=== PATIENT | female | born 1945 | race Caucasian/White ===

== ENCOUNTER → 2017-05-23 | Outpatient (CLI) | payer OTHER ==
[~2017-05-23] MED LIST: ADVAIR 250/501 DISK PO; ALEVE220 M2 PO; ASPIRIN325 MG PO; ASPIRIN81 M2 PO; AZITHROMYCIN250 MG PO; BENICAR40 MG PO; BIOTIN1000 MICRO PO; BYSTOLIC5 MG PO; Bystolic PO; CEFPODOXIME PR200 MG PO; CEPHALEXIN500 MG; COMBIVENT RESPIMAT I PO; CYCLOBENZAPRINE10 MG PO; DAILY VALUE1 EACH PO; DOXAZOSIN MESYLA2 MG PO; FISH OIL 1,0001 EA10 PO; OXYCODONE HCL5 MG PO; PANTOPRAZOLE SO40 MG PO; PREDNISONE10 MG PO; TRICOR48 MG PO; VITAMIN D2000 UNIT PO
== END | disposition home or self-care (01) ==
LOC: EKG 05-18 13:00
DX: I05.1 Rheumatic mitral insufficiency (principal); I27.2 Other secondary pulmonary hypertension; R94.31 Abnormal electrocardiogram [ECG] [EKG]
CPT/HCPCS: 93306